=== PATIENT | male | born 1965 | race Caucasian/White ===

== ENCOUNTER 2023-05-05 18:29 | Emergency (ER) | payer SELFPAY ==
[2023-05-05] MEDS ORDERED: CEPH-585 PO (21:05)
[2023-05-05] MEDS ORDERED: SULF1TAB45 PO (21:05)
== END 2023-05-05 19:19 | disposition left against medical advice (07) ==
LOC: ER 18:30
DX: L02.91 Cutaneous abscess, unspecified (principal); Z53.21 Procedure and treatment not carried out due to patient leaving prior to being seen by health care provider

== ENCOUNTER 2023-05-05 19:48 | Emergency (ER) | payer MEDICAID ==
[~2023-05-05] VITALS: Ht 177.8 cm; Wt 70.0 kg
[2023-05-05 19:52] VITALS: TEMP 98.4
[2023-05-05] MEDS ORDERED: CEPH-585 PO (21:05)
[2023-05-05] MEDS ORDERED: SULF1TAB45 PO (21:05)
[2023-05-05 21:10] LABS: BASOPHILS # (AUTO) 0.1 X10'3 (0-0.2); BASOPHILS % (AUTO) 0.6 % (0-1); EOSINOPHILS # (AUTO) 0.3 X10'3 (0-0.9); EOSINOPHILS % (AUTO) 3.1 % (0-6); HEMATOCRIT 37.8 % (42.0-52.0); HEMOGLOBIN 12.9 g/dl (14.0-17.9); LYMPHOCYTES # (AUTO) 1.6 X10'3 (1.1-4.8); LYMPHOCYTES % (AUTO) 18.2 % (21-51); MEAN CORPUSCULAR HGB CONC 34.1 g/dL (33.0-36.5); MEAN CORPUSCULAR VOLUME 96.7 FL (78-98); MEAN PLATELET VOLUME 6.8 FL (7.4-10.4); MONOCYTES # (AUTO) 0.9 X10'3 (0-0.9); MONOCYTES % (AUTO) 10.7 % (2-12); NEUTROPHILS % (AUTO) 67.4 % (42-75); PLATELET COUNT 267 X10'3 (140-440); RED BLOOD COUNT 3.91 X10'6 (4.70-6.10); RED CELL DISTRIBUTION WIDTH 13.6 % (11.5-14.5); WHITE BLOOD COUNT 8.9 X10'3 (4.5-11.0)
[2023-05-05] MEDS: cephalexin 250mg capsule PO ONE (21:16)
[2023-05-05] MEDS: sulfamethoxazole/trimethoprim DS (800/160mg) tablet PO ONE (21:16)
[2023-05-05 21:31] LABS: ALBUMIN 3.2 G/DL (3.4-5.0); ANION GAP 7 (8-16); BLOOD UREA NITROGEN 13 MG/DL (7-18); BUN/CREATININE RATIO 17.8 (10.0-20.0); CALCIUM 8.3 MG/DL (8.5-10.1); CHLORIDE 103 MMOL/L (99-107); CREATININE 0.73 MG/DL (0.60-1.10); GLUCOSE 102 MG/DL (70-104); SODIUM 141 MMOL/L (135-145); TOTAL CARBON DIOXIDE 31.2 MMOL/L (24-32); eCRCL 112 ML/MIN; eGFR > 90 ML/MIN
[2023-05-05 22:03] VITALS: BP 151/94; PULSE 97; RESP 20; O2SAT 95
== END 2023-05-05 22:06 | disposition home or self-care (01) ==
LOC: ER 19:49
DX: L03.114 Cellulitis of left upper limb (principal); A49.02 Methicillin resistant Staphylococcus aureus infection, unspecified site; F15.90 Other stimulant use, unspecified, uncomplicated; Z79.2 Long term (current) use of antibiotics
CPT/HCPCS: 36415; 73130; 80048; 85025; 99284

== ENCOUNTER 2024-06-03 12:27 | Emergency (ER) | payer MEDICAID ==
[~2024-06-03] VITALS: Ht 177.8 cm; Wt 74.0 kg
[2024-06-03 13:57] VITALS: BP 125/83; PULSE 76; RESP 16; TEMP 97.8; O2SAT 98
== END 2024-06-03 14:00 | disposition home or self-care (01) ==
LOC: ER 12:28
DX: Z02.9 Encounter for administrative examinations, unspecified (principal); F15.90 Other stimulant use, unspecified, uncomplicated
CPT/HCPCS: 99281